=== PATIENT | male | born 1995 | race Caucasian/White ===

== ENCOUNTER 2018-11-28 00:29 | Emergency (ER) | payer SELFPAY ==
[2018-11-28 00:40] VITALS: BP 133/79; PULSE 79; RESP 18; TEMP 36.8; O2SAT 100; BMI 19.2
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
== END 2018-11-28 01:04 | disposition home or self-care (01) ==
LOC: ED 01:11
PROVIDERS: Emergency Provider Emergency Medicine
DX: T14.8XXA Other injury of unspecified body region, initial encounter (principal); V49.9XXA Car occupant (driver) (passenger) injured in unspecified traffic accident, initial encounter
CPT/HCPCS: 99282

== ENCOUNTER 2023-09-03 20:33 | Emergency (ER) | payer SELFPAY ==
[2023-09-03 20:35] VITALS: BP 129/80; PULSE 88; RESP 16; TEMP 36.6; O2SAT 99; BMI 19.3
--- NOTE | 2023-09-03 20:44 | DI.US.S_ITS ---
PROCEDURE: US SCROTUM INDICATIONS: RIGHT TESTICULAR PAIN TECHNIQUE: Real-time scanning was performed of the scrotum and testicles, with image documentation. Color and pulse Doppler interrogation was performed of both testicles. COMPARISON: None. FINDINGS: Right: Testicle is normal in size at 4.4 x 2.8 x 1.9 cm, and homogenous in echotexture. Epididymis is normal in overall size and morphology. No hydrocele or varicoceles. Overlying scrotal skin is normal in thickness. Left: Testicle is normal in size at 4.2 x 3.2 x 1.8 cm, and homogeneous in echotexture. Epididymis is homogeneous but does show increased vascularity. Incidental 8 mm simple cysts noted in the head of the epididymis No hydrocele or varicoceles. Overlying scrotal skin is normal in thickness. Doppler: Color and pulse Doppler demonstrate normal and symmetric arterial flow in both testicles. IMPRESSION: Increased epididymal vascularity on the left is consistent with an epididymitis. No evidence of testicular torsion Approved by: Fawad Neal M.D. on 09/03/2023 at 21:46
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
[2023-09-03 21:15] LABS: Appearance Urine UA CLEAR; Bilirubin Urine UA NEGATIVE (NEGATIVE); Color Urine UA YELLOW; Glucose Urine UA NEGATIVE (Negative); Ketones Urine UA NEGATIVE (NEGATIVE); Leukocyte Esterase Urine UA NEGATIVE (NEGATIVE); Nitrite Urine UA NEGATIVE (Negative); Occult Blood Urine UA NEGATIVE (Negative); Protein Urine UA NEGATIVE (Negative); Specific Gravity Urine UA 1.015 (1.000-1.035); Urobilinogen Urine UA 0.2 E.U./dL (0.2)
[2023-09-03 21:31] LABS: Bacteria Urine None Seen; Culture Indicated Urine Cult Not Indicated; RBC Urine None Seen (0-5/HPF); Squamous Epithelial Cell Urine None Seen (0-5/HPF); WBC Urine None Seen (0-5/HPF)
[2023-09-03 22:43] LABS: Urine N gonorrhoeae NOT DETECTED
[2023-09-03 22:51] LABS: Urine Chlamydia NOT DETECTED
[2023-09-03 23:01] VITALS: BP 123/74; PULSE 82; RESP 16; O2SAT 99
== END 2023-09-03 23:01 | disposition home or self-care (01) ==
PROVIDERS: Emergency Provider Emergency Medicine
DX: S39.011A Strain of muscle, fascia and tendon of abdomen, initial encounter (principal)
CPT/HCPCS: 76870; 81001; 87491; 87591; 93975; 99281